=== PATIENT | male | born 1960 | race African-American/Black ===

== ENCOUNTER 2022-08-26 12:02 | Inpatient (IN) ==
[2022-08-26 12:40] LABS: Basophils % 0.2 % (0.0-0.8); Eosinophils # 0.1 10*3/uL (0.0-0.87); Eosinophils % 1.1 % (0.00-10.9); Hematocrit 22.8 VOL% (42.0-52.0); Hemoglobin 6.9 GM/DL (14.0-18.0); Immature Granulocytes % 1.2 %; Immature Granulocytes Absolute 0.14 #; Lymphocytes # 0.9 10*3/uL (1.4-4.0); Lymphocytes % 7.6 % (21.2-54.2); Mean Corpuscular HGB Conc 30.3 GM/DL (32-36); Mean Corpuscular Volume 86.4 FL (87-102); Mean Platelet Volume 11.4 FL (9.6-12.0); Monocytes # 1.4 10*3/uL (0.11-0.8); Monocytes % 11.9 % (1.7-12.7); Platelet Count 265 T/CUMM (130-400); Red Blood Count 2.64 MC/CUMM (3.8-5.5); Red Cell Distribution Width 17.9 % (9.3-17.3); White Blood Count 11.9 T/CUMM (4-12)
[2022-08-26 12:51] LABS: Albumin 1.7 G/DL (3.4-5.0); Bilirubin,Total 0.8 MG/DL (0.20-1.00); Calcium 8.6 MG/DL (8.5-10.1); Osmolality,Calculated 287.3 MOS/KG (273-304); Potassium 3.6 MMOL/L (3.5-5.1); Total Protein 7.4 G/DL (6.4-8.2)
[2022-08-26 12:54] LABS: INR 1.1; PT Patient Result 12.2 SECS (10.1-12.1)
[2022-08-26] MEDS ORDERED: SODIUM CHLORIDE 0.9% 1,000 ML IV PRN (13:04)
[2022-08-26] MEDS ORDERED: DILTIAZEM 50 MG/10 ML VIAL IV STA (13:15)
[2022-08-26] MEDS ORDERED: ACETAMINOPHEN 325 MG TABLET PO ONE ×2 (13:39→13:54)
[2022-08-26] MEDS ORDERED: ACETAMINOPHEN 325 MG TABLET ONE (13:40)
[2022-08-26] MEDS: DILTIAZEM INJ 100 MG in SODIUM CHLORIDE 0.9% 100 ML IV SCH ×2 (14:18→21:20)
[2022-08-26] MEDS ORDERED: GLUCAGON 1 MG VIAL IM PRN (14:43)
[2022-08-26] MEDS ORDERED: FUROSEMIDE 40 MG/4 ML VIAL IV SCH (15:00)
[2022-08-26] MEDS ORDERED: DEXTROSE 10% 250 ML BAG IV PRN (15:00)
[2022-08-26 15:26] LABS: Thyroid Stimulating Hormone 1.68 uIU/ml (0.358-3.74)
[2022-08-26 15:47] LABS: % Iron Saturation 11.3 % (18-50)
[2022-08-26] MEDS ORDERED: INFLUENZA VIRUS VACCINE 0.5 ML SYRINGE IM ONE (15:55)
[2022-08-26] MEDS: INSULIN LISPRO 100 UNIT/ML SUBCUT SCH ×2 (17:35→20:38)
[2022-08-26] MEDS: METOPROLOL TARTRATE 25 MG TABLET PO SCH (20:39)
[2022-08-26 23:29] LABS: Hematocrit 25.5 VOL% (42.0-52.0)
[2022-08-27] MEDS: DILTIAZEM INJ 100 MG in SODIUM CHLORIDE 0.9% 100 ML IV SCH ×3 (03:36→22:34)
[2022-08-27] MEDS: ONDANSETRON 4 MG/2 ML VIAL IV PRN ×3 (04:53→21:42)
[2022-08-27 05:53] LABS: Basophils % 0.2 % (0.0-0.8); Eosinophils % 0.2 % (0.00-10.9); Hematocrit 25.1 VOL% (42.0-52.0); Hemoglobin 7.9 GM/DL (14.0-18.0); Immature Granulocytes % 1.1 %; Immature Granulocytes Absolute 0.13 #; Lymphocytes # 0.6 10*3/uL (1.4-4.0); Lymphocytes % 5.1 % (21.2-54.2); Mean Corpuscular HGB Conc 31.5 GM/DL (32-36); Mean Corpuscular Volume 87.2 FL (87-102); Mean Platelet Volume 11.4 FL (9.6-12.0); Monocytes # 1.7 10*3/uL (0.11-0.8); Monocytes % 14.2 % (1.7-12.7); Neutrophils % 79.2 % (38.7-73.9); Platelet Count 250 T/CUMM (130-400); Red Blood Count 2.88 MC/CUMM (3.8-5.5); Red Cell Distribution Width 17.5 % (9.3-17.3)
[2022-08-27 06:07] LABS: Calcium 8.1 MG/DL (8.5-10.1); Osmolality,Calculated 285.4 MOS/KG (273-304); Potassium 3.1 MMOL/L (3.5-5.1)
[2022-08-27 06:26] LABS: Band Neutrophils 19 % (0-10); Eosinophils 1 % (0-10); Lymphocytes 6 % (20-55); Metamyelocytes 1 %; Total Cells Counted 100
[2022-08-27 06:27] LABS: Anisocytosis 1+; Platelet Estimate Normal
[2022-08-27] MEDS ORDERED: MAGNESIUM SULF RIDER 4 GM/100 ML PREMIX IV ONE (08:51)
[2022-08-27] MEDS: INSULIN LISPRO 100 UNIT/ML SUBCUT SCH ×4 (09:06→21:23)
[2022-08-27] MEDS: POTASSIUM CHLORIDE 20 MEQ TABLET PO PRN ×3 (09:06→16:45)
[2022-08-27] MEDS: ASPIRIN EC 81 MG TABLET PO SCH (09:06)
[2022-08-27] MEDS: METOPROLOL TARTRATE 25 MG TABLET PO SCH (09:06)
[2022-08-27] MEDS: PANTOPRAZOLE 40 MG TABLET PO SCH (09:07)
[2022-08-27 12:33] LABS: Calcium 8.4 MG/DL (8.5-10.1); Osmolality,Calculated 285.4 MOS/KG (273-304); Potassium 3.5 MMOL/L (3.5-5.1)
[2022-08-27] MEDS ORDERED: LOPERAMIDE 2 MG CAPSULE PO PRN (12:36)
[2022-08-27] MEDS: SODIUM CHLORIDE 0.9% 1,000 ML IV SCH ×2 (13:15→21:27)
[2022-08-27] MEDS: cefTRIAXone 2,000 MG in SODIUM CHLORIDE 0.9% 100 ML IV SCH (14:21)
[2022-08-27] MEDS ORDERED: DIGOXIN 0.5 MG/2 ML AMP IV ONE (14:42)
[2022-08-27] MEDS ORDERED: FUROSEMIDE 40 MG/4 ML VIAL IV SCH (16:00)
[2022-08-27] MEDS: DILTIAZEM 30 MG TABLET PO SCH ×2 (16:44→17:31)
[2022-08-27] MEDS: TAMSULOSIN 0.4 MG CAPSULE PO SCH (16:44)
[2022-08-27] MEDS: GABAPENTIN 300 MG CAPSULE PO SCH (21:24)
[2022-08-27] MEDS: carvediloL 12.5 MG TABLET PO SCH (21:24)
[2022-08-27] MEDS: SACUBITRIL/VALSARTAN 49-51 MG TABLET PO SCH (21:24)
[2022-08-28] MEDS: DILTIAZEM 30 MG TABLET PO SCH ×4 (00:24→19:21)
[2022-08-28] MEDS: SODIUM CHLORIDE 0.9% 1,000 ML IV SCH ×3 (00:24→21:47)
[2022-08-28 04:59] LABS: Basophils % 0.1 % (0.0-0.8); Eosinophils % 0.2 % (0.00-10.9); Hematocrit 23.7 VOL% (42.0-52.0); Hemoglobin 7.2 GM/DL (14.0-18.0); Immature Granulocytes % 1.5 %; Immature Granulocytes Absolute 0.17 #; Lymphocytes # 0.6 10*3/uL (1.4-4.0); Lymphocytes % 5.5 % (21.2-54.2); Mean Corpuscular HGB Conc 30.4 GM/DL (32-36); Mean Corpuscular Volume 89.1 FL (87-102); Mean Platelet Volume 11.4 FL (9.6-12.0); Monocytes # 1.5 10*3/uL (0.11-0.8); Monocytes % 13.2 % (1.7-12.7); Neutrophils % 79.5 % (38.7-73.9); Platelet Count 242 T/CUMM (130-400); Red Blood Count 2.66 MC/CUMM (3.8-5.5); Red Cell Distribution Width 18.1 % (9.3-17.3); White Blood Count 11.6 T/CUMM (4-12)
[2022-08-28 05:19] LABS: Potassium 3.9 MMOL/L (3.5-5.1)
[2022-08-28] MEDS: ONDANSETRON 4 MG/2 ML VIAL IV PRN (05:40)
[2022-08-28] MEDS ORDERED: BUPIVACAINE MPF 0.25% 10 ML VIAL ONE (06:38)
[2022-08-28] MEDS ORDERED: fentaNYL 100 MCG/2 ML VIAL ONE (06:41)
[2022-08-28] MEDS ORDERED: MIDAZOLAM 2 MG/2 ML VIAL ONE (06:41)
[2022-08-28] MEDS ORDERED: FAMOTIDINE 20 MG/2 ML VIAL IV ONE (07:02)
[2022-08-28] MEDS ORDERED: ePHEDrine 50 MG/ML VIAL ONE (07:38)
[2022-08-28] MEDS ORDERED: CLINDAMYCIN INJ 900 MG/50 ML PREMIX IV ONE (08:01)
[2022-08-28] MEDS ORDERED: ONDANSETRON 4 MG/2 ML VIAL ONE (08:01)
[2022-08-28] MEDS ORDERED: propofoL 200 MG/20 ML VIAL IV ONE ×2 (08:01→11:13)
[2022-08-28] MEDS ORDERED: LIDOCAINE 2% 5 ML VIAL ONE ×2 (08:01→11:13)
[2022-08-28] MEDS ORDERED: PHENYLEPHRINE 1 MG/10 ML SYRINGE IV ONE (08:01)
[2022-08-28] MEDS ORDERED: PHENYLEPHRINE 10 MG/1 ML VIAL IV ONE (08:09)
[2022-08-28] MEDS ORDERED: ETOMIDATE 20 MG/10 ML VIAL IV ONE (11:18)
[2022-08-28] MEDS ORDERED: MAGNESIUM SULF RIDER 2 GM/50 ML PREMIX IV ONE (11:43)
[2022-08-28] MEDS ORDERED: SODIUM CHLORIDE 0.9% 1,000 ML IV PRN (11:44)
[2022-08-28] MEDS ORDERED: GLUCAGON 1 MG VIAL IM PRN (11:54)
[2022-08-28] MEDS ORDERED: DEXTROSE 50% 25 GM/50 ML VIAL IV PRN (11:54)
[2022-08-28] MEDS: ASPIRIN EC 81 MG TABLET PO SCH (12:44)
[2022-08-28] MEDS: TAMSULOSIN 0.4 MG CAPSULE PO SCH (12:44)
[2022-08-28] MEDS: PANTOPRAZOLE 40 MG TABLET PO SCH (12:45)
[2022-08-28] MEDS: allopurinoL 100 MG TABLET PO SCH (12:45)
[2022-08-28] MEDS: carvediloL 12.5 MG TABLET PO SCH ×2 (12:45→21:45)
[2022-08-28] MEDS: LACTATED RINGERS 1,000 ML IV SCH (13:16)
[2022-08-28] MEDS ORDERED: SIMETHICONE CHEW 80 MG TABLET PO PRN (13:49)
[2022-08-28] MEDS: INSULIN LISPRO 100 UNIT/ML SUBCUT SCH ×4 (13:55→21:46)
[2022-08-28] MEDS: SACUBITRIL/VALSARTAN 49-51 MG TABLET PO SCH ×2 (13:56→21:45)
[2022-08-28] MEDS: cefTRIAXone 2,000 MG in SODIUM CHLORIDE 0.9% 100 ML IV SCH (15:53)
[2022-08-28] MEDS: GABAPENTIN 300 MG CAPSULE PO SCH (21:45)
[2022-08-29] MEDS: DILTIAZEM 30 MG TABLET PO SCH ×3 (00:48→14:01)
[2022-08-29 04:59] LABS: Basophils % 0.1 % (0.0-0.8); Eosinophils # 0.1 10*3/uL (0.0-0.87); Eosinophils % 0.9 % (0.00-10.9); Hematocrit 22.6 VOL% (42.0-52.0); Hemoglobin 6.8 GM/DL (14.0-18.0); Immature Granulocytes % 1.2 %; Immature Granulocytes Absolute 0.12 #; Lymphocytes # 0.7 10*3/uL (1.4-4.0); Lymphocytes % 6.4 % (21.2-54.2); Mean Corpuscular HGB Conc 30.1 GM/DL (32-36); Mean Platelet Volume 10.9 FL (9.6-12.0); Monocytes # 1.2 10*3/uL (0.11-0.8); Monocytes % 11.8 % (1.7-12.7); Neutrophils % 79.6 % (38.7-73.9); Platelet Count 241 T/CUMM (130-400); Red Blood Count 2.51 MC/CUMM (3.8-5.5); Red Cell Distribution Width 18.4 % (9.3-17.3); White Blood Count 10.4 T/CUMM (4-12)
[2022-08-29] MEDS: SODIUM CHLORIDE 0.9% 1,000 ML IV SCH ×2 (05:01→16:17)
[2022-08-29 05:16] LABS: Osmolality,Calculated 295.8 MOS/KG (273-304); Potassium 3.5 MMOL/L (3.5-5.1)
[2022-08-29] MEDS ORDERED: SODIUM CHLORIDE 0.9% 1,000 ML IV PRN (09:31)
[2022-08-29] MEDS: SACUBITRIL/VALSARTAN 49-51 MG TABLET PO SCH ×2 (10:01→21:09)
[2022-08-29] MEDS: ASPIRIN EC 81 MG TABLET PO SCH (10:02)
[2022-08-29] MEDS: TAMSULOSIN 0.4 MG CAPSULE PO SCH (10:02)
[2022-08-29] MEDS: carvediloL 12.5 MG TABLET PO SCH (10:02)
[2022-08-29] MEDS: PANTOPRAZOLE 40 MG TABLET PO SCH (10:02)
[2022-08-29] MEDS: allopurinoL 100 MG TABLET PO SCH (10:02)
[2022-08-29] MEDS: INSULIN LISPRO 100 UNIT/ML SUBCUT SCH ×4 (10:04→21:09)
[2022-08-29] MEDS ORDERED: POTASSIUM CHLORIDE 20 MEQ TABLET PO ONE (14:44)
[2022-08-29] MEDS ORDERED: MAGNESIUM SULF RIDER 2 GM/50 ML PREMIX IV ONE (14:44)
[2022-08-29] MEDS: LACTATED RINGERS 1,000 ML IV SCH (16:17)
[2022-08-29] MEDS: POTASSIUM CHLORIDE 20 MEQ TABLET PO PRN (17:06)
[2022-08-29] MEDS: cefTRIAXone 2,000 MG in SODIUM CHLORIDE 0.9% 100 ML IV SCH (20:29)
[2022-08-29] MEDS: carvediloL 25 MG TABLET PO SCH (21:09)
[2022-08-29] MEDS: GABAPENTIN 300 MG CAPSULE PO SCH (21:10)
[2022-08-30] MEDS: SODIUM CHLORIDE 0.9% 1,000 ML IV SCH ×3 (03:05→21:35)
[2022-08-30 04:39] LABS: Basophils % 0.2 % (0.0-0.8); Eosinophils # 0.1 10*3/uL (0.0-0.87); Eosinophils % 1.3 % (0.00-10.9); Hemoglobin 8.4 GM/DL (14.0-18.0); Immature Granulocytes % 1.4 %; Immature Granulocytes Absolute 0.15 #; Lymphocytes # 0.7 10*3/uL (1.4-4.0); Lymphocytes % 6.3 % (21.2-54.2); Mean Corpuscular HGB Conc 31.1 GM/DL (32-36); Mean Corpuscular Volume 91.8 FL (87-102); Monocytes # 1.1 10*3/uL (0.11-0.8); Monocytes % 10.5 % (1.7-12.7); Neutrophils % 80.3 % (38.7-73.9); Platelet Count 245 T/CUMM (130-400); Red Blood Count 2.94 MC/CUMM (3.8-5.5); Red Cell Distribution Width 17.7 % (9.3-17.3)
[2022-08-30 05:03] LABS: Calcium 7.9 MG/DL (8.5-10.1); Osmolality,Calculated 293.1 MOS/KG (273-304); Potassium 3.6 MMOL/L (3.5-5.1)
[2022-08-30] MEDS: DILTIAZEM 30 MG TABLET PO SCH (08:04)
[2022-08-30] MEDS: allopurinoL 100 MG TABLET PO SCH (08:41)
[2022-08-30] MEDS: carvediloL 25 MG TABLET PO SCH (08:41)
[2022-08-30] MEDS: TAMSULOSIN 0.4 MG CAPSULE PO SCH (08:41)
[2022-08-30] MEDS: DILTIAZEM CD 120 MG CAPSULE PO SCH (08:41)
[2022-08-30] MEDS: ASPIRIN EC 81 MG TABLET PO SCH (08:42)
[2022-08-30] MEDS: INSULIN LISPRO 100 UNIT/ML SUBCUT SCH ×4 (08:42→21:25)
[2022-08-30] MEDS: PANTOPRAZOLE 40 MG TABLET PO SCH (08:42)
[2022-08-30] MEDS: SACUBITRIL/VALSARTAN 49-51 MG TABLET PO SCH ×2 (08:50→21:25)
[2022-08-30] MEDS ORDERED: MAGNESIUM SULF RIDER 2 GM/50 ML PREMIX IV ONE (09:15)
[2022-08-30] MEDS ORDERED: POTASSIUM CHLORIDE 20 MEQ TABLET PO ONE (09:15)
[2022-08-30] MEDS: LACTATED RINGERS 1,000 ML IV SCH (10:59)
[2022-08-30] MEDS: cefTRIAXone 2,000 MG in SODIUM CHLORIDE 0.9% 100 ML IV SCH (14:23)
[2022-08-30] MEDS: carvediloL 12.5 MG TABLET PO SCH (21:25)
[2022-08-30] MEDS: GABAPENTIN 300 MG CAPSULE PO SCH (21:25)
[2022-08-31 05:21] LABS: Basophils % 0.2 % (0.0-0.8); Eosinophils # 0.3 10*3/uL (0.0-0.87); Eosinophils % 2.6 % (0.00-10.9); Hematocrit 30.4 VOL% (42.0-52.0); Immature Granulocytes % 2.2 %; Immature Granulocytes Absolute 0.24 #; Lymphocytes # 0.8 10*3/uL (1.4-4.0); Lymphocytes % 7.7 % (21.2-54.2); Mean Corpuscular HGB Conc 29.6 GM/DL (32-36); Mean Corpuscular Volume 92.4 FL (87-102); Mean Platelet Volume 11.3 FL (9.6-12.0); Monocytes # 1.3 10*3/uL (0.11-0.8); Neutrophils % 75.3 % (38.7-73.9); Platelet Count 273 T/CUMM (130-400); Red Blood Count 3.29 MC/CUMM (3.8-5.5); Red Cell Distribution Width 17.9 % (9.3-17.3); White Blood Count 10.87 T/CUMM (4-12)
[2022-08-31 05:58] LABS: Calcium 8.3 MG/DL (8.5-10.1); Osmolality,Calculated 291.8 MOS/KG (273-304); Potassium 3.7 MMOL/L (3.5-5.1)
[2022-08-31] MEDS: SODIUM CHLORIDE 0.9% 1,000 ML IV SCH ×2 (06:40→18:17)
[2022-08-31] MEDS: INSULIN LISPRO 100 UNIT/ML SUBCUT SCH ×4 (09:15→21:21)
[2022-08-31] MEDS ORDERED: fentaNYL 100 MCG/2 ML VIAL ONE (09:36)
[2022-08-31] MEDS ORDERED: SUCCINYLCHOLINE 200 MG/10 ML VIAL ONE (09:36)
[2022-08-31] MEDS ORDERED: propofoL 200 MG/20 ML VIAL IV ONE (09:36)
[2022-08-31] MEDS ORDERED: SEVOFLURANE 1 UNIT/15 MINUTE INH ONE ×2 (09:36→11:27)
[2022-08-31] MEDS ORDERED: KETAMINE 500 MG/10 ML VIAL ONE (09:36)
[2022-08-31] MEDS ORDERED: ROCURONIUM 50 MG/5 ML VIAL IV ONE (09:36)
[2022-08-31] MEDS ORDERED: LIDOCAINE 2% 5 ML VIAL ONE (09:36)
[2022-08-31] MEDS ORDERED: BUPIVACAINE MPF 0.5% 30 ML VIAL ONE (09:45)
[2022-08-31] MEDS ORDERED: DEXAMETHASONE 4 MG/1 ML VIAL ONE (09:45)
[2022-08-31] MEDS ORDERED: LACTATED RINGERS 1,000 ML IV SCH (10:00)
[2022-08-31] MEDS ORDERED: PHENYLEPHRINE DRIP 20 MG/250 ML PREMIX IV ONE (10:14)
[2022-08-31] MEDS ORDERED: NEOSTIGMINE 10 MG/10 ML VIAL ONE (10:54)
[2022-08-31] MEDS ORDERED: GLYCOPYRROLATE 0.4 MG/2 ML VIAL ONE (10:54)
[2022-08-31] MEDS ORDERED: HYDROmorphone 1 MG/1 ML SYRINGE IV PRN (11:35)
[2022-08-31] MEDS: PANTOPRAZOLE 40 MG TABLET PO SCH (14:02)
[2022-08-31] MEDS: SACUBITRIL/VALSARTAN 49-51 MG TABLET PO SCH ×2 (14:02→21:20)
[2022-08-31] MEDS: allopurinoL 100 MG TABLET PO SCH (14:02)
[2022-08-31] MEDS: carvediloL 12.5 MG TABLET PO SCH ×2 (14:02→21:20)
[2022-08-31] MEDS: DILTIAZEM CD 120 MG CAPSULE PO SCH (14:02)
[2022-08-31] MEDS: ASPIRIN EC 81 MG TABLET PO SCH (14:03)
[2022-08-31] MEDS: cefTRIAXone 2,000 MG in SODIUM CHLORIDE 0.9% 100 ML IV SCH (14:04)
[2022-08-31] MEDS: TAMSULOSIN 0.4 MG CAPSULE PO SCH (14:10)
[2022-08-31] MEDS: GABAPENTIN 300 MG CAPSULE PO SCH (21:20)
[2022-09-01] MEDS: SODIUM CHLORIDE 0.9% 1,000 ML IV SCH ×2 (03:36→22:06)
[2022-09-01 04:56] LABS: Basophils % 0.2 % (0.0-0.8); Eosinophils % 0.1 % (0.00-10.9); Hematocrit 30.1 VOL% (42.0-52.0); Immature Granulocytes % 5.1 %; Immature Granulocytes Absolute 0.55 #; Lymphocytes # 0.6 10*3/uL (1.4-4.0); Lymphocytes % 5.5 % (21.2-54.2); Mean Corpuscular HGB Conc 29.9 GM/DL (32-36); Mean Corpuscular Volume 92.6 FL (87-102); Mean Platelet Volume 11.4 FL (9.6-12.0); Monocytes % 9.5 % (1.7-12.7); Neutrophils % 79.6 % (38.7-73.9); Platelet Count 297 T/CUMM (130-400); Red Blood Count 3.25 MC/CUMM (3.8-5.5); Red Cell Distribution Width 17.7 % (9.3-17.3); White Blood Count 10.73 T/CUMM (4-12)
[2022-09-01 05:11] LABS: Calcium 8.2 MG/DL (8.5-10.1); Osmolality,Calculated 296.8 MOS/KG (273-304); Potassium 3.8 MMOL/L (3.5-5.1)
[2022-09-01 05:23] LABS: Band Neutrophils 3 % (0-10); Hypochromia Slight; Lymphocytes 5 % (20-55); Platelet Estimate Adequate; Total Cells Counted 100
[2022-09-01] MEDS: DILTIAZEM CD 120 MG CAPSULE PO SCH (09:15)
[2022-09-01] MEDS: allopurinoL 100 MG TABLET PO SCH (09:15)
[2022-09-01] MEDS: PANTOPRAZOLE 40 MG TABLET PO SCH (09:15)
[2022-09-01] MEDS: SACUBITRIL/VALSARTAN 49-51 MG TABLET PO SCH ×2 (09:15→22:03)
[2022-09-01] MEDS: TAMSULOSIN 0.4 MG CAPSULE PO SCH (09:15)
[2022-09-01] MEDS: ASPIRIN EC 81 MG TABLET PO SCH (09:16)
[2022-09-01] MEDS: carvediloL 12.5 MG TABLET PO SCH ×2 (09:16→22:03)
[2022-09-01] MEDS: INSULIN LISPRO 100 UNIT/ML SUBCUT SCH ×4 (09:16→22:03)
[2022-09-01] MEDS: SODIUM HYPOCHLORITE 0.25% IRRIG 473 ML BOTTLE TOP SCH (12:15)
[2022-09-01] MEDS ORDERED: MAGNESIUM SULF RIDER 4 GM in PREMIX 1 EACH IV ONE (15:29)
[2022-09-01] MEDS: cefTRIAXone 2,000 MG in SODIUM CHLORIDE 0.9% 100 ML IV SCH (15:54)
[2022-09-01] MEDS: GABAPENTIN 300 MG CAPSULE PO SCH (22:03)
[2022-09-02 05:15] LABS: Basophils % 0.4 % (0.0-0.8); Eosinophils # 0.2 10*3/uL (0.0-0.87); Eosinophils % 2.8 % (0.00-10.9); Hematocrit 26.5 VOL% (42.0-52.0); Hemoglobin 7.9 GM/DL (14.0-18.0); Immature Granulocytes % 6.2 %; Immature Granulocytes Absolute 0.52 #; Lymphocytes % 12.1 % (21.2-54.2); Mean Corpuscular HGB Conc 29.8 GM/DL (32-36); Mean Corpuscular Volume 92.3 FL (87-102); Mean Platelet Volume 11.3 FL (9.6-12.0); Neutrophils % 66.5 % (38.7-73.9); Platelet Count 305 T/CUMM (130-400); Red Blood Count 2.87 MC/CUMM (3.8-5.5); Red Cell Distribution Width 17.7 % (9.3-17.3); White Blood Count 8.33 T/CUMM (4-12)
[2022-09-02 05:40] LABS: Alanine Aminotransferase 18 U/L (16-61); Albumin 1.1 G/DL (3.4-5.0); Alkaline Phosphatase 107 U/L (45-117); Aspartate Amino Transferase 21 U/L (0-37); Bilirubin,Total < 0.39 MG/DL (0.20-1.00); Blood Urea Nitrogen 17 MG/DL (7-18); Calcium 7.9 MG/DL (8.5-10.1); Carbon Dioxide 21 MMOL/L (21-32); Chloride 116 MMOL/L (98-107); Glucose 103 MG/DL (74-106); Osmolality,Calculated 289.7 MOS/KG (273-304); Potassium 3.2 MMOL/L (3.5-5.1); Sodium 145 MMOL/L (136-145); Total Protein 5.9 G/DL (6.4-8.2)
[2022-09-02 05:44] LABS: Band Neutrophils 2 % (0-10); Eosinophils 2 % (0-10); Hypochromia Slight; Lymphocytes 13 % (20-55); Platelet Estimate Adequate; Total Cells Counted 100
[2022-09-02] MEDS: INSULIN LISPRO 100 UNIT/ML SUBCUT SCH ×4 (08:46→20:24)
[2022-09-02] MEDS: DILTIAZEM CD 120 MG CAPSULE PO SCH (10:24)
[2022-09-02] MEDS: TAMSULOSIN 0.4 MG CAPSULE PO SCH (10:24)
[2022-09-02] MEDS: SACUBITRIL/VALSARTAN 49-51 MG TABLET PO SCH ×2 (10:24→20:25)
[2022-09-02] MEDS: POTASSIUM CHLORIDE 20 MEQ TABLET PO PRN ×2 (10:24→12:15)
[2022-09-02] MEDS: PANTOPRAZOLE 40 MG TABLET PO SCH (10:25)
[2022-09-02] MEDS: allopurinoL 100 MG TABLET PO SCH (10:25)
[2022-09-02] MEDS: carvediloL 12.5 MG TABLET PO SCH ×2 (10:25→20:25)
[2022-09-02] MEDS: ASPIRIN EC 81 MG TABLET PO SCH (10:25)
[2022-09-02] MEDS: SODIUM CHLORIDE 0.9% 1,000 ML IV SCH ×2 (10:26→17:09)
[2022-09-02] MEDS: cefTRIAXone 2,000 MG in SODIUM CHLORIDE 0.9% 100 ML IV SCH (14:04)
[2022-09-02] MEDS: SODIUM HYPOCHLORITE 0.25% IRRIG 473 ML BOTTLE TOP SCH (15:55)
[2022-09-02] MEDS: GABAPENTIN 300 MG CAPSULE PO SCH (20:25)
[2022-09-03] MEDS: SODIUM CHLORIDE 0.9% 1,000 ML IV SCH ×3 (04:02→22:31)
[2022-09-03 06:18] LABS: Albumin 1.2 G/DL (3.4-5.0); Bilirubin,Total 0.4 MG/DL (0.20-1.00); Calcium 7.5 MG/DL (8.5-10.1); Osmolality,Calculated 296.3 MOS/KG (273-304); Potassium 3.8 MMOL/L (3.5-5.1); Total Protein 5.6 G/DL (6.4-8.2)
[2022-09-03 06:30] LABS: Basophils % 0.4 % (0.0-0.8); Eosinophils # 0.2 10*3/uL (0.0-0.87); Eosinophils % 2.9 % (0.00-10.9); Hematocrit 26.3 VOL% (42.0-52.0); Hemoglobin 7.9 GM/DL (14.0-18.0); Immature Granulocytes % 7.6 %; Immature Granulocytes Absolute 0.58 #; Lymphocytes # 1.1 10*3/uL (1.4-4.0); Lymphocytes % 14.7 % (21.2-54.2); Mean Corpuscular Volume 92.3 FL (87-102); Mean Platelet Volume 11.1 FL (9.6-12.0); Monocytes # 1.1 10*3/uL (0.11-0.8); Monocytes % 14.9 % (1.7-12.7); Neutrophils % 59.5 % (38.7-73.9); Platelet Count 286 T/CUMM (130-400); Red Blood Count 2.85 MC/CUMM (3.8-5.5); Red Cell Distribution Width 17.8 % (9.3-17.3)
[2022-09-03 06:56] LABS: Band Neutrophils 1 % (0-10); Eosinophils 3 % (0-10); Hypochromia Slight; Lymphocytes 15 % (20-55); Microcytosis Slight; Total Cells Counted 100
[2022-09-03 06:57] LABS: Ovalocytes Slight
[2022-09-03] MEDS: INSULIN LISPRO 100 UNIT/ML SUBCUT SCH ×4 (07:26→20:38)
[2022-09-03] MEDS ORDERED: MAGNESIUM SULF RIDER 4 GM in PREMIX 1 EACH IV ONE (09:06)
[2022-09-03] MEDS: SACUBITRIL/VALSARTAN 49-51 MG TABLET PO SCH ×2 (09:46→21:00)
[2022-09-03] MEDS: DILTIAZEM CD 120 MG CAPSULE PO SCH (09:48)
[2022-09-03] MEDS: carvediloL 12.5 MG TABLET PO SCH ×2 (09:48→21:00)
[2022-09-03] MEDS: PANTOPRAZOLE 40 MG TABLET PO SCH (09:48)
[2022-09-03] MEDS: TAMSULOSIN 0.4 MG CAPSULE PO SCH (09:48)
[2022-09-03] MEDS: allopurinoL 100 MG TABLET PO SCH (09:48)
[2022-09-03] MEDS: SODIUM HYPOCHLORITE 0.25% IRRIG 473 ML BOTTLE TOP SCH (09:49)
[2022-09-03] MEDS: POTASSIUM CHLORIDE 20 MEQ TABLET PO PRN (09:49)
[2022-09-03] MEDS: ASPIRIN EC 81 MG TABLET PO SCH (10:01)
[2022-09-03] MEDS: cefTRIAXone 2,000 MG in SODIUM CHLORIDE 0.9% 100 ML IV SCH (14:00)
[2022-09-03] MEDS: GABAPENTIN 300 MG CAPSULE PO SCH (21:00)
[2022-09-04 04:59] LABS: Calcium 7.6 MG/DL (8.5-10.1); Osmolality,Calculated 288.7 MOS/KG (273-304); Potassium 3.6 MMOL/L (3.5-5.1)
[2022-09-04] MEDS ORDERED: MAGNESIUM SULF RIDER 4 GM/100 ML PREMIX IV ONE (09:05)
[2022-09-04] MEDS: TAMSULOSIN 0.4 MG CAPSULE PO SCH (09:53)
[2022-09-04] MEDS: SACUBITRIL/VALSARTAN 49-51 MG TABLET PO SCH (09:53)
[2022-09-04] MEDS: PANTOPRAZOLE 40 MG TABLET PO SCH (09:54)
[2022-09-04] MEDS: DILTIAZEM CD 120 MG CAPSULE PO SCH (09:54)
[2022-09-04] MEDS: carvediloL 12.5 MG TABLET PO SCH (09:54)
[2022-09-04] MEDS: allopurinoL 100 MG TABLET PO SCH (09:55)
[2022-09-04] MEDS: ASPIRIN EC 81 MG TABLET PO SCH (09:55)
[2022-09-04] MEDS: INSULIN LISPRO 100 UNIT/ML SUBCUT SCH (09:55)
[2022-09-04] MEDS: SODIUM HYPOCHLORITE 0.25% IRRIG 473 ML BOTTLE TOP SCH (09:57)
[2022-09-04] MEDS ORDERED: cefTRIAXone 2,000 MG VIAL IV SCH (10:30)
[2022-09-04] MEDS ORDERED: cefTRIAXone 2,000 MG in SODIUM CHLORIDE 0.9% 100 ML IV SCH (10:30)
[2022-09-04 12:38] VITALS: BP 152/86
== END 2022-09-04 13:06 | DRG 616 ==
LOC: N.ED 12:02 → N.TELES 12:02 → SUATTDRO 14:42 → OBSVTOIN 15:35 → N.TELES 15:50
PROVIDERS: ADMIT Emergency Medicine; ATTEND Internal Medicine